=== PATIENT | male | born 2000 | race Caucasian/White ===

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

== ENCOUNTER 2021-02-15 09:02 | Outpatient (CLI) | payer OTHER, SELFPAY ==
--- NOTE | ~2021-02-15 | XR_ITS ---
EXAMINATION: XR barium swallow DATE: 02/15/2021 10:35 CDT INDICATION: Dysphagia with vomiting TECHNIQUE: Thick barium contrast with gas effervescent crystals were administered orally. Fluoroscop ic images of the esophagus were obtained in various projections. The hypopharynx was also examined. T hereafter, overhead images of the thoracic esophagrus were performed. Fluroscopy time 0.8. 50 fluoros copic images. FINDINGS: The esophagus is normal in caliber, without mucosal lesions or strictures. There is normal esophageal peristalsis. There is a small sliding hiatal hernia. No discreet episode of gastroesopha geal reflux is seen during the course of this study. IMPRESSION: 1. Small sliding hiatal hernia. Reviewed, dictated and finalized at location B.
== END 2021-02-15 09:03 | disposition home or self-care (01) ==
LOC: CHSIMG 09:03
PROVIDERS: PCP Family Medicine; Visit Provider Family Medicine
DX: R13.10 Dysphagia, unspecified (principal)
CPT/HCPCS: 74220

== ENCOUNTER 2021-07-27 18:19 | Outpatient (CLI) | payer OTHER, SELFPAY ==
--- NOTE | ~2021-07-27 | XR_ITS ---
EXAMINATION: XR foot RT min 3V DATE: 07/27/2021 18:38 INDICATION: Numbness to the right great toe after dropping an object on it one month prior TECHNIQUE: Dorsoplantar, two oblique and lateral views of the right foot were obtained. COMPARISON: None. FINDINGS: Alignment is normal. No fracture. Joint spaces are normal. Soft tissues are unremarkable. IMPRESSION: 1. Negative right foot radiographs. Reviewed, dictated and finalized at location A. 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
== END 2021-07-27 18:20 | disposition home or self-care (01) ==
LOC: CHSIMG 18:21
PROVIDERS: PCP Family Medicine; Visit Provider Family Medicine
DX: M79.671 Pain in right foot (principal)
CPT/HCPCS: 73630

== ENCOUNTER 2022-02-01 00:58 | Day surgery (SDC) | payer OTHER, SELFPAY ==
[2022-01-19 08:57] VITALS: BMI 34.4
[2022-02-01 11:51] VITALS: BP 122/74; PULSE 60; RESP 20; TEMP 36.6; O2SAT 99
[2022-02-01] MEDS: LACTATED RINGERS 1,000 ML 150 ML IV CONT (11:56)
--- NOTE | 2022-02-01 12:23 | WPDANESEPPF ---
Anes - Initial Pre Proc Eval Procedure: Operation Date: 02/01/22 13:45 Proposed Procedures p Esophagogastroduodenoscopy - Myron Stinson MD Date/Time: 02/01/22 12:23 Surgeon: Myron Stinson MD Pre Op Diagnosis: GERD Patient Data Age: 21 Gender: M Height: 1.78 m Weight: 104.7 kg Last Vital Signs Temp 97.9 F 02/01/22 11:51 Pulse 60 02/01/22 11:51 Resp 20 02/01/22 11:51 BP 122/74 02/01/22 11:51 Pulse Ox 99 02/01/22 11:51 O2 Del Method Room Air 02/01/22 11:51 Allergies Allergy/AdvReac Type Severity Reaction Status Date / Time No Known Allergies Allergy Verified 02/01/22 11:50 Home Medications Medication Instructions Recorded Confirmed Type No Home Medications 01/19/22 01/19/22 History Patient hx anesthesia problems: none Family hx anesthesia problems: none Results Review: All pre-operative results and documents have been reviewed as part of the pre-operative evaluation. [facility] Past Medical History Medical History (Updated 12/27/21 @ 15:43 by Myron Stinson MD) Depression Marijuana smoker Surgical History Surgical History (Updated 08/09/20 @ 16:10 by Kory Pastrana MD) History of appendectomy Social History Social History (Updated 12/27/21 @ 15:30 by Opal Hollins MA) Smoking status: Never smoker Second hand tobacco smoke exposure: Yes Alcohol intake: current Drinks per week: 2 Alcohol use details: rarely Substance use: current Substance use type: marijuana Other substance usage details: Once weekly Living arrangements: with family Spiritual care concerns: No Anes - Eval Final PreProcedure Day of Procedure 02/01/22 12:23 Patient weight: obese Heart: regular rate and rhythm Lungs: clear to auscultation Airway: Mallampati scale class II Neurological: alert and oriented Last oral intake: >/= 8 hours ASA classification: II Emergent: no Anesthetic plan: proceed Anesthesia type and monitoring: general GIVS and standard monitoring Results Review: All pre-operative results and documents have been reviewed as part of the pre-operative evaluation. Informed Consent: The patient's anesthetic plan and its attendant risks and benefits were discussed with the patient/family/POA. Questions were solicited and answers provided to the satisfaction of the patient/family/POA.
--- NOTE | 2022-02-01 12:25 | PM.HPGS ---
History of Present Illness History of Present Illness Consent: Risks, benefits, and alternatives have been discussed and questions answered. Patient agrees to proceed with procedure. Chief complaint: GERD Narrative: Shravan Guerrero is a 21 year old male with gerd better on omeprazole but never had egd Review of Systems Constitutional: Constitutional: Denies headache(s) and Denies weakness Eyes: Eyes: Denies blurry vision ENT: Reports Normal hearing present, Denies headache(s) and Denies neck pain Cardiovascular: Cardiovascular: Denies chest pain and Denies dyspnea Respiratory: Respiratory: Denies dyspnea Gastrointestinal: Gastrointestinal: Reports no additional gastrointestinal complaints Genitourinary: Genitourinary: Denies dysuria Musculoskeletal: Musculoskeletal: Denies neck pain Integumentary/Breasts: Skin/Breast: Denies dry skin Neurologic: Reports Normal hearing present, Denies headache(s) and Denies weakness Psychiatric: Psychiatric: Denies anxiety Endocrine: Endocrine: Denies change in body appearance Hematologic/Lymphatic: Hematologic/Lymphatic: Denies easy bleeding Allergic/Immunologic: Allergic/Immunologic: Denies urticaria PMFSH Past Medical History Medical History (Updated 02/01/22 @ 12:25 by Myron Stinson MD) Depression GERD (gastroesophageal reflux disease) Marijuana smoker Surgical History Surgical History (Updated 08/09/20 @ 16:10 by Kory Pastrana MD) History of appendectomy Social History Social History (Updated 12/27/21 @ 15:30 by Opal Hollins MA) Smoking status: Never smoker Second hand tobacco smoke exposure: Yes Alcohol intake: current Drinks per week: 2 Alcohol use details: rarely Substance use: current Substance use type: marijuana Other substance usage details: Once weekly Living arrangements: with family Spiritual care concerns: No Meds Home Medications and Allergies Home Medications Medication Instructions Recorded Confirmed Type No Home Medications 01/19/22 01/19/22 History Allergies Allergy/AdvReac Type Severity Reaction Status Date / Time No Known Allergies Allergy Verified 02/01/22 11:50 Vital Signs Vital Signs - 24 hr 02/01/22 11:51 Temperature 97.9 F Pulse Rate 60 Respiratory Rate 20 Blood Pressure 122/74 Pulse Oximetry 99 Oxygen Delivery Room Air Exam Const: General: comfortable and no acute distress HENMT: General nose exam: Normal nares present Eyes: General: appearance normal, both eyes and all related structures Neck: Neck: no JVD Resp: Auscultation: clear to auscultation bilaterally Cardio: Rate: regular rate Rhythm: regular rhythm GI: Inspection: non-distended GI Palp: Yes Soft to palpation Skin: General skin exam: normal color Neuro: General: gait normal Speech: normal speech Extrem: General: normal to inspection Psych: Mental Status: mental status grossly normal Assessment and Plan Assessment and plan (1) GERD (gastroesophageal reflux disease): Code(s): K21.9 - Gastro-esophageal reflux disease without esophagitis Status: Acute Assessment and Plan: egd with bx, he is using omeprazole
[2022-02-01 12:38] VITALS: BP 119/56; PULSE 56; RESP 20; O2SAT 98
[2022-02-01 12:48] VITALS: BP 109/54; PULSE 53; RESP 19; O2SAT 97
[2022-02-01 12:58] VITALS: BP 112/67; PULSE 53; RESP 18; O2SAT 100
[2022-02-01 13:08] VITALS: BP 129/95; PULSE 60; RESP 20; O2SAT 100
== END 2022-02-01 13:21 | disposition home or self-care (01) ==
PROVIDERS: PCP Family Medicine; Visit Provider Internal Medicine Gastroenterology
PROC: 0DJ08ZZ Inspection of Upper Intestinal Tract, Via Natural or Artificial Opening Endoscopic (ICD-10-PCS; CPT 43235; principal; 2022-02-01 13:45)
DX: K22.70 Barrett's esophagus without dysplasia (principal); K21.00 Gastro-esophageal reflux disease with esophagitis, without bleeding; F32.A Depression, unspecified
CPT/HCPCS: 43239; 88305; J2704; J7120

== ENCOUNTER 2022-04-07 00:58 | Day surgery (SDC) | payer OTHER, SELFPAY ==
[2022-03-22 13:29] VITALS: BMI 34.4
[2022-04-07 07:27] VITALS: BP 122/63; PULSE 74; RESP 18; TEMP 36.6; O2SAT 97; BMI 32.8
[2022-04-07] MEDS: LACTATED RINGERS 1,000 ML 150 ML IV CONT (07:35)
--- NOTE | 2022-04-07 07:36 | P.PNAN_ITS ---
Anes - Initial Pre Proc Eval Procedure: Operation Date: 04/07/22 08:30 Proposed Procedures p Esophagogastroduodenoscopy - Myron Stinson MD Date/Time: 04/07/22 07:36 Surgeon: Myron Stinson MD Pre Op Diagnosis: esophagtitis Patient Data Age: 21 Gender: M Height: 1.78 m Weight: 104 kg Last Vital Signs Temp 36.6 C 04/07/22 07:27 Pulse 74 04/07/22 07:27 Resp 18 04/07/22 07:27 BP 122/63 04/07/22 07:27 Pulse Ox 97 04/07/22 07:27 O2 Del Method Room Air 04/07/22 07:27 Allergies Allergy/AdvReac Type Severity Reaction Status Date / Time No Known Allergies Allergy Verified 04/07/22 07:26 Home Medications Medication Instructions Recorded Confirmed Type omeprazole 40 mg capsule,delayed 40 mg PO BID #60 caps 02/01/22 04/07/22 Rx release Patient hx anesthesia problems: none Family hx anesthesia problems: none Results Review: All pre-operative results and documents have been reviewed as part of the pre- operative evaluation. [facility] Past Medical History Medical History (Updated 02/01/22 @ 12:25 by Myron Stinson MD) Depression GERD (gastroesophageal reflux disease) Marijuana smoker Surgical History Surgical History (Updated 08/09/20 @ 16:10 by Kory Pastrana MD) History of appendectomy Social History Social History (Updated 12/27/21 @ 15:30 by Opal Hollins MA) Smoking status: Never smoker Second hand tobacco smoke exposure: Yes Alcohol intake: never Drinks per week: 2 Alcohol use details: rarely Substance use: current Substance use type: marijuana Other substance usage details: Once weekly Living arrangements: with family Spiritual care concerns: No Anes - Eval Final PreProcedure Day of Procedure 04/07/22 07:36 Patient weight: obese Heart: regular rate and rhythm Lungs: clear to auscultation Airway: Mallampati scale class II Neurological: alert and oriented Last oral intake: >/= 8 hours ASA classification: II Emergent: no Anesthetic plan: proceed Anesthesia type and monitoring: general GIVS and standard monitoring Results Review: All pre-operative results and documents have been reviewed as part of the pre- operative evaluation. Informed Consent: The patient's anesthetic plan and its attendant risks and benefits were discussed with the patient/family/POA. Questions were solicited and answers provided to the satisfaction of the patient/family/POA.
--- NOTE | 2022-04-07 07:56 | PM.HPGS ---
History of Present Illness History of Present Illness Consent: Risks, benefits, and alternatives have been discussed and questions answered. Patient agrees to proceed with procedure. Chief complaint: esophagtitis Narrative: Shravan Guerrero is a 21 year old male with symptomatic gerd but improved since ppi increased bid, doing much better now, also found to have Perez's. Grandfather had esophageal cancer Review of Systems Constitutional: Constitutional: Denies headache(s) and Denies weakness Eyes: Eyes: Denies blurry vision ENT: Reports Normal hearing present, Denies headache(s) and Denies neck pain Cardiovascular: Cardiovascular: Denies chest pain and Denies dyspnea Respiratory: Respiratory: Denies dyspnea Gastrointestinal: Gastrointestinal: Reports no additional gastrointestinal complaints Genitourinary: Genitourinary: Denies dysuria Musculoskeletal: Musculoskeletal: Denies neck pain Integumentary/Breasts: Skin/Breast: Denies dry skin Neurologic: Reports Normal hearing present, Denies headache(s) and Denies weakness Psychiatric: Psychiatric: Denies anxiety Endocrine: Endocrine: Denies change in body appearance Hematologic/Lymphatic: Hematologic/Lymphatic: Denies easy bleeding Allergic/Immunologic: Allergic/Immunologic: Denies urticaria PMFSH Past Medical History Medical History (Updated 04/07/22 @ 07:57 by Myron Stinson MD) Perez's esophagus with esophagitis Depression GERD (gastroesophageal reflux disease) Marijuana smoker Surgical History Surgical History (Updated 08/09/20 @ 16:10 by Kory Pastrana MD) History of appendectomy Social History Social History (Updated 12/27/21 @ 15:30 by Opal Hollins MA) Smoking status: Never smoker Second hand tobacco smoke exposure: Yes Alcohol intake: never Drinks per week: 2 Alcohol use details: rarely Substance use: current Substance use type: marijuana Other substance usage details: Once weekly Living arrangements: with family Spiritual care concerns: No Meds Home Medications and Allergies Home Medications Medication Instructions Recorded Confirmed Type omeprazole 40 mg capsule,delayed 40 mg PO BID #60 caps 02/01/22 04/07/22 Rx release Allergies Allergy/AdvReac Type Severity Reaction Status Date / Time No Known Allergies Allergy Verified 04/07/22 07:26 Vital Signs Vital Signs - 24 hr 04/07/22 07:27 Temperature 97.9 F Pulse Rate 74 Respiratory Rate 18 Blood Pressure 122/63 Pulse Oximetry 97 Oxygen Delivery Room Air Exam Const: General: comfortable and no acute distress HENMT: General nose exam: Normal nares present Eyes: General: appearance normal, both eyes and all related structures Neck: Neck: no JVD Resp: Auscultation: clear to auscultation bilaterally Cardio: Rate: regular rate Rhythm: regular rhythm GI: Inspection: non-distended GI Palp: Yes Soft to palpation Skin: General skin exam: normal color Neuro: General: gait normal Speech: normal speech Extrem: General: normal to inspection Psych: Mental Status: mental status grossly normal Assessment and Plan Assessment and plan (1) GERD (gastroesophageal reflux disease): Code(s): K21.9 - Gastro-esophageal reflux disease without esophagitis Status: Acute Assessment and Plan: egd to assess healing (2) Perez's esophagus with esophagitis: Code(s): K22.70 - Perez's esophagus without dysplasia; K20.90 - Esophagitis, unspecified without bleeding Status: Acute Assessment and Plan: on ppi bid
[2022-04-07 08:12] VITALS: BP 110/60; PULSE 60; RESP 18; O2SAT 96
[2022-04-07 08:22] VITALS: BP 124/82; PULSE 64; RESP 18; O2SAT 100
[2022-04-07 08:32] VITALS: BP 118/64; PULSE 62; RESP 18; O2SAT 100
== END 2022-04-07 08:40 | disposition home or self-care (01) ==
PROVIDERS: PCP Family Medicine; Visit Provider Internal Medicine Gastroenterology
PROC: 0DJ08ZZ Inspection of Upper Intestinal Tract, Via Natural or Artificial Opening Endoscopic (ICD-10-PCS; CPT 43235; principal; 2022-04-07 08:30)
DX: K21.9 Gastro-esophageal reflux disease without esophagitis (principal); K22.70 Barrett's esophagus without dysplasia; F12.90 Cannabis use, unspecified, uncomplicated; F32.A Depression, unspecified; E66.9 Obesity, unspecified; Z68.32 Body mass index [BMI] 32.0-32.9, adult
CPT/HCPCS: 43239; 88305; J2704; J7120